=== PATIENT | male | born 1980 | race Caucasian/White ===

== ENCOUNTER 2020-03-16 15:53 | Emergency (ER) | payer OTHER ==
[~2020-03-16] VITALS: Ht 180.3 cm; Wt 100.7 kg
[2020-03-16 15:57] VITALS: BP 129/87
[2020-03-16 16:03] VITALS: BP 120/81
--- NOTE | 2020-03-16 16:03 | NUR ---
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 DENIES TRAUMA OR INJURY TO HIS NECK, BUT REPORTS DEGENERATIVE CHANGES ON THE CERVICAL SPINE ACCOMPANIED BY NUMBNESS AND TINGLING SENSATIONS FOR ONE YEAR. PT IS ABLE TO MOVE HIS NECK AT THIS TIME AND DENIES WORSENED NUMBNESS AND TINGLING ON HIS BRITTANY ARMS. AAOX4 WITH EVEN AND STEADY GAIT; LUNGS CLEAR BL; HR EVEN AND REGULAR; PT DENIES ANY FEVER, CP, SOB, OR COUGH AT THIS TIME; PATIENT STATES PAIN OF 8/10 AT THIS TIME; VSS; PATIENT POSITIONED FOR COMFORT; HOB ELEVATED; BEDRAILS UP X1; BED DOWN. ER MD MADE AWARE OF PT STATUS.
--- NOTE | 2020-03-16 16:51 | NUR ---
Patient discharged with v/s stable. Written and verbal after care instructions given and explained. Patient verbalized understanding. Ambulatory with steady gait. All questions addressed prior to discharge. Advised to follow up with PMD.
== END 2020-03-16 16:51 | disposition home or self-care (01) ==
LOC: MED 15:53
DX: S16.1XXA Strain of muscle, fascia and tendon at neck level, initial encounter (principal); M50.322 Other cervical disc degeneration at C5-C6 level; X58.XXXA Exposure to other specified factors, initial encounter; Y93.89 Activity, other specified; Y92.89 Other specified places as the place of occurrence of the external cause; Y99.8 Other external cause status
CPT/HCPCS: 72040; 99283

== ENCOUNTER 2021-04-12 19:57 | Emergency (ER) | payer OTHER ==
[~2021-04-12] VITALS: Ht 182.9 cm; Wt 99.8 kg
[2021-04-12 20:29] VITALS: BP 143/74
--- NOTE | 2021-04-12 20:32 | NUR ---
to lobby a/w bed ambulatory
[2021-04-12] MEDS ORDERED: ALUMINUM HYD/MAG/SIMETHICONE 30 ML UDC PO ONE (22:15)
[2021-04-12] MEDS ORDERED: FAMOTIDINE 20 MG TAB PO ONE (22:15)
[2021-04-12] MEDS ORDERED: DICYCLOMINE 10 MG CAP PO ONE (22:15)
[2021-04-12 22:21] LABS: BASOPHILS # (AUTO) 0.1 K/uL (0.00-0.22); BASOPHILS % (AUTO) 0.9 % (0.0-2.0); EOSINOPHILS # (AUTO) 0.3 K/uL (0-0.4); EOSINOPHILS % (AUTO) 3.7 % (0.0-4.0); HEMATOCRIT 46.7 % (36-52); HEMOGLOBIN 16.3 g/dL (12.0-18.0); LYMPHOCYTES # (AUTO) 2.4 K/uL (2.0-11.5); LYMPHOCYTES % (AUTO) 31.9 % (20.5-51.1); MEAN CORPUSCULAR HEMOGLOBIN 31 pg (27-31); MEAN CORPUSCULAR HGB CONC 35 g/dL (33-37); MEAN CORPUSCULAR VOLUME 89.4 fL (80-94); MONOCYTES # (AUTO) 0.5 K/uL (0.8-1.0); MONOCYTES % (AUTO) 6.9 % (1.7-9.3); NEUTROPHILS # (AUTO) 4.3 K/uL (1.8-7.7); NEUTROPHILS % (AUTO) 56.6 % (42.2-75.2); PLATELET COUNT (AUTO) 229 K/uL (140-450); RED BLOOD CELL COUNT(AUTO) 5.22 MIL/uL (4.20-6.10); RED CELL DISTRIBUTION WIDTH 13.1 % (11.6-13.7); WHITE BLOOD COUNT (AUTO) 7.6 K/uL (4.8-10.8)
[2021-04-12] MEDS ORDERED: DICYCLOMINE HCL LIQUID 20 MG, ALUMINUM HYD/MAG/SIMETHICONE 30 ML, LIDOCAINE VISCOUS 2% ... PO ONE ×3 (22:40)
[2021-04-12] MEDS ORDERED: DICYCLOMINE HCL LIQUID 10 MG/5 ML UDC ONE (22:43)
[2021-04-12 22:54] LABS: ALBUMIN 4.4 g/dL (3.4-5.0); ANION GAP 10.9 (8-16); CARBON DIOXIDE 31.2 mmol/L (21-32); POTASSIUM 4.1 mmol/L (3.5-5.1); TOTAL BILIRUBIN 1.7 mg/dL (0.0-1.0)
--- NOTE | 2021-04-12 23:40 | NUR ---
40 YO/M BIB SELF W C/O CONSTANT GENERALIZED ABDOMINAL PAIN 5/10 "RIPPING PAIN, GAS LIKE," W BLOOD IN STOOL X3 DAYS. PATIENT DENIES N/V/D. PATIENT REPORTS HAD A BOWLE MOVEMENT X3 DAYS AGO AND FELT SOMETHING TEAR HE PASSED STOOL AND THEN BLEEDING BEGAN. PATIENT REPORTS X1 EPISODE OF FEVER X1 WEEK AGO, NO FEVER SINCE THEN. PATIENT ALSO REPORTS X1 EPISODE OF DARK URINE, DENIES BURNING URINATION, FREQUENCY, RETENTION OR OTHER SYMPTOMS. BOWEL SOUNDS PRESENT, ABDOMEN SOFT NON-TENDER. PATIENT LAYING IN BED LOCKED IN LOWEST POSITION W X1 SIDERAIL UP. BREATHING EVEN AND UNLABORED. NAD NOTED, WILL CONTINUE TO MONITOR. PMH:DENIES NKA
[2021-04-13] MEDS ORDERED: ALUM355S59 PO (00:05)
[2021-04-13] MEDS ORDERED: BEN10 PO (00:05)
--- NOTE | 2021-04-13 00:10 | NUR ---
PATIENT REPORTS HAD X1 EPISODE OF COUGH/SPITTING UP BLACK RESIDUE X3 DAYS AGO. ERMD ASSESSING PATIENT'S EPISODE.
[2021-04-13 00:15] VITALS: BP 143/74
--- NOTE | 2021-04-13 00:15 | NUR ---
Patient discharged with v/s stable. Written and verbal after care instructions given and explained. Patient alert, oriented and verbalized understanding of instructions. Ambulatory with steady gait. All questions addressed prior to discharge. ID band removed. Patient advised to follow up with PMD. Rx of MAALOX ADVANCED SUSPENSION, BENTYL given. Patient educated on indication of medication including possible reaction and side effects. Opportunity to ask questions provided and answered.
== END 2021-04-13 00:15 | disposition home or self-care (01) ==
LOC: MED 19:57
DX: K62.5 Hemorrhage of anus and rectum (principal)
CPT/HCPCS: 36415; 80053; 83690; 85025; 99283